=== PATIENT | female | born 1955 | race Caucasian/White ===

== ENCOUNTER 2020-03-24 06:54 | Outpatient (NON) | payer BC, SELFPAY ==
[2020-03-25 18:58] LABS: SARS-CoV-2 RNA PCR Negative
== END 2020-03-24 06:55 ==
PROVIDERS: PCP Internal Medicine; Visit Provider Internal Medicine
DX: R53.83 Other fatigue (principal); Z20.828 Contact with and (suspected) exposure to other viral communicable diseases
CPT/HCPCS: 87635; C9803; U0003

== ENCOUNTER 2020-11-17 15:36 | Emergency (ER) | payer BC, SELFPAY ==
--- NOTE | ~2020-11-17 | XR_ITS ---
EXAMINATION: XR chest 2V DATE: 11/17/2020 16:12 INDICATION: Productive cough and shortness of breath TECHNIQUE: PA and lateral views of the chest are obtained. COMPARISON: None available FINDINGS: There are minimal airspace opacities of the right middle lobe. There is a possible nodule o f the right lower lobe. There is no pleural effusion or pneumothorax. The cardiomediastinal silhouett e is normal. There is severe thoracic spondylosis. IMPRESSION: 1. Minimal airspace opacities of the right middle lobe, consistent with atelectasis versus pneumonia. Recommend followup radiographs in 10-14 days after appropriate therapy to evaluate for improvement/r esolution. 2. Possible right lower lobe nodule. Recommend attention on follow-up examination. Reviewed, dictated and finalized at location B. IMPRESSION: 1. Minimal airspace opacities of the right middle lobe, consistent with atelect asis versus pneumonia. Recommend followup radiographs in 10-14 days after appro priate therapy to evaluate for improvement/resolution. 2. Possible right lower lobe nodule. Recommend attention on follow-up examinati on.
[2020-11-17 15:50] VITALS: BP 141/102; PULSE 108; RESP 20; O2SAT 96
[2020-11-17 16:05] VITALS: BP 128/96
--- NOTE | 2020-11-17 16:38 | ED.URI ---
HPI - URI/Sore Throat General Chief Complaint: Upper Respiratory Infection Stated Complaint: sinus Time Seen by Provider: 11/17/20 15:59 Source: patient and RN notes reviewed Mode of arrival: ambulatory Limitations: no limitations History of Present Illness HPI Narrative: Patient presents today with a 1 week history of headache, intermittent diarrhea, fatigue, with a 2 to 3-day history of fever up to 99.3 with cough, congestion, rhinorrhea, feeling hot and cold. Patient has shortness of breath at baseline and states it is not worse than normal. She has been taking Mucinex, Excedrin, and Nasacort with relief. She has not been vaccinated against COVID-19. Smokes 2 packs/day. MD elicited complaint: cough and nasal congestion Related Data Allergies Allergy/AdvReac Type Severity Reaction Status Date / Time No Known Allergies Allergy Verified 11/17/20 16:04 Review of Systems Review of Systems: CONSTITUTIONAL: Denies body aches. + Fatigue, fever, chills, sweats EYES: Denies visual changes, redness, or discharge. ENT: Denies sore throat, or otalgia.+ Rhinorrhea, congestion CARDIOVASCULAR: Denies chest pain, palpitations, or edema. RESPIRATORY: Denies worsening shortness of breath.+ Cough GASTROINTESTINAL: Denies abdominal pain, nausea, vomiting. + Diarrhea GENITOURINARY: Denies dysuria or hematuria. SKIN: Denies rash, itching, or wounds. MUSCULOSKELETAL: Denies back pain, joint pain, or myalgia. NEUROLOGIC: Denies numbness, tingling, or weakness.+ Headache PSYCH: Denies depression or anxiety. PMFSH Surgical History Surgical History (Updated 11/17/20 @ 19:30 by Aixa Teresa, ANABEL, ) H/O thyroidectomy Social History Social History Gender identity (if verbalized by the patient): Female Comments At time of signature, I have reviewed and agree with nursing past medical, surgical, social and family history unless otherwise noted. Please see nursing chart for further information. There is no relevant family history pertinent to the presenting complaint Exam Narrative: GENERAL: Chronically ill-appearing, well-nourished, and in no acute distress. HEAD: Normocephalic, atraumatic. EYES: EOMI. No redness or drainage. Conjunctivae normal. ENT: Mucous membranes pink and moist. Nares congested. No rhinorrhea. TMs normal bilaterally. Throat normal. Uvula midline. NECK: Normal AROM. Supple. No lymphadenopathy. CHEST: No respiratory distress. Slightly diminished in the bilateral bases, otherwise clear HEART: Regular rate and rhythm. No murmur appreciated. Normal peripheral pulses. EXTREMITIES: Normal range of motion. No edema. SKIN: Warm, dry, no rash. Capillary refill normal. Normal skin turgor. NEURO: No focal deficits. Alert and oriented x3. Gait steady. PSYCH: Normal affect. No signs of depression or anxiety. Course Vital Signs Vital signs: Vital Signs Pulse Rate 108 H 11/17/20 15:50 Respiratory Rate 20 11/17/20 15:50 Blood Pressure 141/102 H 11/17/20 15:50 Pulse Oximetry 96 11/17/20 15:50 Pulse Rate 108 H 11/17/20 15:50 Respiratory Rate 20 11/17/20 15:50 Blood Pressure 128/96 H 11/17/20 16:05 Pulse Oximetry 96 11/17/20 15:50 Reviewed. Pt has been instructed to follow up with her PCP regarding her elevated blood pressure today. MDM - URI/Sore Throat Differential Diagnosis Differential diagnosis: Likely upper respiratory infection, sinusitis, viral infection, bronchitis and other (Pneumonia, COVID-19) Lab Data Attestation: I reviewed the patient's lab results. Labs: Lab Results 11/17/20 Range/Units 16:03 POC SARS CoV-2 Ag Negative (Negative) Critical Care Time Critical Care Time Critical Care Time: No Discharge Plan Discharge Clinical Impression: Pneumonia Qualifiers: Pneumonia type: due to unspecified organism Laterality: right Lung location: middle lobe of lung Qualified Code(s): J18.9 - Pneu
[2020-11-18 17:53] LABS: SARS-CoV-2 RNA PCR Negative
== END 2020-11-17 16:56 | disposition home or self-care (01) ==
PROVIDERS: Emergency Provider Nurse Practitioner; PCP Internal Medicine
DX: J18.1 Lobar pneumonia, unspecified organism (principal); Z20.822 Contact with and (suspected) exposure to COVID-19
CPT/HCPCS: 71046; 87426; 99213; C9803; G0463; U0003; U0005

== ENCOUNTER → 2021-08-21 11:29 | Outpatient (CLI) | payer BC, SELFPAY ==
--- NOTE | ~2021-08-21 | US_ITS ---
US abdomen complete EXAMINATION: US Abdomen Complete INDICATION: Upper abdominal pain PROCEDURE: Realtime High Resolution abdomen ultrasound. COMPARISON: No prior studies for comparison FINDINGS: Gallbladder is surgically absent. Common bile duct measures 8 mm. Liver echotexture within normal limits without focal mass. Pancreas within normal limits. Pancreati c tail is obscured by bowel gas. There are calcified granulomas of the spleen.. Renal echotexture is within normal limits bilaterally without hydronephrosis, contour deforming mass or renal stone. Right kidney measures 9.6 cm. Left kidney measures 9.5 cm. Visualized aspects of the aorta and IVC are within normal limits. Portal vein is patent. No sonograph ic Martinez's sign indicated by the technologist. IMPRESSION: 1: Status post cholecystectomy with expected prominence of the common bile duct. Reviewed, dictated and finalized at location A. IMPRESSION: 1: Status post cholecystectomy with expected prominence of the common bile duct .
== END ==
PROVIDERS: PCP Nurse Practitioner; Visit Provider Nurse Practitioner
DX: R10.10 Upper abdominal pain, unspecified (principal); Z90.49 Acquired absence of other specified parts of digestive tract
CPT/HCPCS: 76700

== ENCOUNTER → 2021-08-24 15:48 | Outpatient (CLI) | payer BC, SELFPAY ==
--- NOTE | ~2021-08-24 | CT_ITS ---
EXAMINATION: CT lung screening DATE: 08/24/2021 16:04 INDICATION: Personal history of tobacco dependence TECHNIQUE: Computed tomography (CT) of the chest was performed without intravenous contrast. The dose -length product was 199.90 mGy-cm. Automated exposure control and iterative reconstruction technique were employed. COMPARISON: None FINDINGS: Heart size normal. No significant pleural or pericardial effusion. There are calcified gran ulomas of the spleen. Status post cholecystectomy. Small hiatal hernia. No thoracic lymphadenopathy. There are a few scattered calcified granulomas of the lung parenchyma. There is emphysema. There is a 7 mm subsolid nodule in the left upper lobe, image 38 there are reticulonodular densities in the rig ht upper lobe peripherally, likely postinfectious/inflammatory residua. There are small pleural-based nodules measuring 2-3 mm in the upper lobes. No endobronchial lesions. No pneumothorax. No focal air space consolidation to suggest pneumonia. Moderate thoracic spondylosis.. IMPRESSION: 1. Lung-RADS category 3: Probably benign. Further evaluation is recommended with noncontrast low-dose chest CT in 6 months. Reviewed, dictated and finalized at location B. IMPRESSION: 1. Lung-RADS category 3: Probably benign. Further evaluation is recommended wit h noncontrast low-dose chest CT in 6 months.
== END ==
PROVIDERS: PCP Nurse Practitioner; Visit Provider Nurse Practitioner
DX: Z12.2 Encounter for screening for malignant neoplasm of respiratory organs (principal); Z87.891 Personal history of nicotine dependence; R91.8 Other nonspecific abnormal finding of lung field
CPT/HCPCS: 71271

== ENCOUNTER → 2021-10-20 07:47 | Outpatient (CLI) | payer BC, SELFPAY ==
--- NOTE | ~2021-10-20 | MM_ITS ---
EXAMINATION: MM screening dustin BI w angela HISTORY: Screening TECHNIQUE: Craniocaudal and mediolateral oblique 3-D tomosynthesis images were obtained and synthetic 2-D images were generated. CAD analysis was submitted and interpreted. COMPARISON: No prior mammogram is available for comparison at this institution. BREAST PARENCHYMAL COMPOSITION: There are scattered areas of fibroglandular density. FINDINGS: There is a focal asymmetry with clustered calcifications in the subareolar location of the left breast. There are no suspicious masses, calcifications or architectural distortion in the right breast to suggest malignancy. IMPRESSION: 1. Focal asymmetry in left breast calcifications in the subareolar location. 2. Additional mammographic views and possible breast ultrasound are recommended. BI-RADS Category 0: Incomplete: Needs additional imaging evaluation. Reviewed, dictated and finalized at location A. IMPRESSION: 1. Focal asymmetry in left breast calcifications in the subareolar location. 2. Additional mammographic views and possible breast ultrasound are recommended . BI-RADS Category 0: Incomplete: Needs additional imaging evaluation.
== END ==
PROVIDERS: PCP Nurse Practitioner; Visit Provider Nurse Practitioner
DX: Z12.31 Encounter for screening mammogram for malignant neoplasm of breast (principal); R92.8 Other abnormal and inconclusive findings on diagnostic imaging of breast
CPT/HCPCS: 77063; 77067

== ENCOUNTER 2021-11-19 07:44 | Outpatient (CLI) | payer BC, SELFPAY ==
--- NOTE | ~2021-11-19 | CT_ITS ---
EXAMINATION: CT abdomen pelvis w con DATE: 11/19/2021 08:29 INDICATION: Hemorrhage of the anus, rectum and vagina TECHNIQUE: Computed tomography (CT) of the abdomen and pelvis was performed with 100 cc Omnipaque 350 intravenous contrast. The dose-length product was 1276.21 mGy-cm. Automated exposure control and ite rative reconstruction technique were employed. COMPARISON: None. FINDINGS: Lung bases are unremarkable. Heart size normal. No significant pleural or pericardial effus ion. Status post cholecystectomy with expected prominence of the bile ducts. There are calcified granulomas of the spleen. Colonic diverticulosis without evidence for diverticuli tis. Mild atherosclerosis without aneurysm. Small hiatal hernia. No lymphadenopathy. The pancreas, adrenal glands and kidneys are unremarkable. Moderate lumbar spondylosis with grade 1 s pondylolisthesis at L4-5. IMPRESSION: 1. No acute abdominal abnormality. No findings to account for patient's symptoms. Reviewed, dictated and finalized at location B. IMPRESSION: 1. No acute abdominal abnormality. No findings to account for patient's symptom s.
[2021-11-19 08:17] LABS: Estimated Glomerular Filt Rate 50
== END 2021-11-19 07:45 | disposition home or self-care (01) ==
LOC: ANHIMG 07:46
PROVIDERS: PCP Nurse Practitioner; Visit Provider Nurse Practitioner
DX: K62.5 Hemorrhage of anus and rectum (principal); N93.9 Abnormal uterine and vaginal bleeding, unspecified; R10.9 Unspecified abdominal pain
CPT/HCPCS: 74177; Q9967

== ENCOUNTER 2022-03-19 11:58 | Outpatient (CLI) | payer BC, SELFPAY ==
--- NOTE | ~2022-03-19 | PE_ITS ---
EXAMINATION: PET skull to mid thigh DATE: 03/19/2022 14:02 INDICATION: Multiple nodules of lung TECHNIQUE: Blood glucose level was 108 mg/dL. 10.397 mCi of 18-fluorodeoxyglucose (18-FDG) was admini stered i.v. Low dose computed tomography (CT) images were acquired from the base of the brain to the proximal thighs for attenuation correction and anatomic localization. Positron emission tomography (P ET) images were acquired in the same distribution beginning 63 minutes after injection. Images includ ing fused PET/CT images were reconstructed in axial, coronal, and sagittal planes. Automated exposure control technique was employed. The dose-length product was 841.72mGy-cm. COMPARISON: CT dated 11/19/2021, 03/07/2022 and 08/24/2021 FINDINGS: Head/neck: There is symmetric increased activity in the oral cavity, palatine tonsils and ocular muscles without CT correlate, likely physiologic. No pathologically enlarged cervical lymphadenopathy or suspicious foci of increased FDG uptake in the visualized head or neck. Chest: The bilobed left upper lobe nodule which appears to have enlarged from 10 x 5 mm on 08/24/2021 to prisca uring 1.6 x 0.9 cm on 03/07/2022 demonstrates moderate increased FDG uptake with maximal SUV of 10.3. Small calcified nodule in the anterior segment of the right upper lobe without associated FDG uptake which along with a few calcified right hilar and mediastinal lymph nodes are likely related to old gr anulomatous disease. No other suspicious pulmonary nodules, pneumonia, pulmonary edema or pleural eff usion. Heart size is normal. No pericardial effusion. Thoracic aorta is normal in caliber. No patholo gically enlarged or FDG avid thoracic lymphadenopathy. Abdomen/pelvis/proximal thighs: Physiologic renal accumulation and excretion of FDG activity in the kidneys, bladder and along portio ns of ureters. Normal degree and heterogenous pattern of increased uptake throughout the liver withou t radiologic correlate or dominant FDG avid lesion. Cholecystectomy clips the gallbladder fossa. Naina ral small splenic calcific lesions consistent with old granulomatous disease. The pancreas and bilate ral adrenal glands are normal. Mild to moderate uptake scattered throughout the bowels without radiol ogic correlate, also likely physiologic. There are few scattered diverticula along the sigmoid colon without adjacent inflammatory change to suggest diverticulitis. Normal appendix. No other abnormal fo ci of increased FDG uptake or pathologically enlarged lymphadenopathy in the abdomen, pelvis or proxi mal thighs. Musculoskeletal: Severe thoracic and lumbar spondylosis. Mild increased uptake overlying the left greater trochanter w ithout radiologic correlate consistent with trochanteric bursitis. No suspicious lytic, blastic or FD G avid bone lesions. IMPRESSION: 1. Moderate increased FDG uptake associated with enlarging left upper lobe nodule which is concerning for primary bronchogenic carcinoma. Consider percutaneous CT-guided biopsy. Reviewed, dictated and finalized at location A. ICAL PROJECT MANAGER IMPRESSION: 1. Moderate increased FDG uptake associated with enlarging left upper lobe nodu le which is concerning for primary bronchogenic carcinoma. Consider maddieou s CT-guided biopsy.
[2022-03-19 12:31] LABS: Glucose Point of Care 108 mg/dl (65-105)
== END 2022-03-19 11:59 | disposition home or self-care (01) ==
PROVIDERS: PCP Nurse Practitioner; Visit Provider Nurse Practitioner
DX: R91.8 Other nonspecific abnormal finding of lung field (principal)
CPT/HCPCS: 78815; A9552

== ENCOUNTER 2022-04-09 07:54 | Outpatient (CLI) | payer BC, SELFPAY ==
--- NOTE | 2022-03-26 15:51 | PC.NURSE ---
Pre Radiology instructions Report to the outpatient [facility] on date _04/09/22 @ 0900____ Procedure Time: _1100___ YOU MAY BE MONITORED AT HOSPITAL FOR UP TO 4 HOURS AFTER YOUR PROCEDURE. A visitors will be allowed to accompany the patient into the hospital. ?The visitor will be instructed to remain with patient at all times or leave the building due to restrictions.? We will allow the visitor to come back to the postoperative area when patient is ready.? NO children visitors allowed at this time. You and your visitor will be asked to self-screen and do not enter if you have any COVID symptoms. A mask is REQUIRED within the hospital. Patients are to have no food or drink 6 hours prior to procedure time (0500 AM) Driving will be restricted after the procedure, you must have a person to drive you home. Labs will be drawn in preop area and once reviewed, you will be taken to radiology area for procedure. When the procedure is completed, you will be taken to outpatient where you will be monitored for several hours. You may have one visitor in this area. Other than holding anti-coagulants, patient may take other medication(s) as scheduled. Prior to your appointment date patients are instructed to hold anti-coagulants after discussing with ordering provider to stop. If unable to discontinue anti-coagulants please notify radiologist. ? No aspirin or warfarin (Coumadin) for 7 days prior to the procedure. ? No clopidogrel (Plavix), ticagrelor (Brilinta), prasugrel (Effient) or dabigatran (Pradaxa) for 5 days prior to the procedure. ? No rivaroxaban (Xarelto), apixaban (Eliquis), dipyridamole (Aggrenox or Persantine) or cilostazol (Pletal) for 2 days prior to the procedure. Medications to discontinue per physician: __ EXCEDRIN Date to take last dose: ___04/01/22 Please leave all valuables, including medications, at home the day of procedure. The hospital will not accept responsibility for valuables. Wear comfortable, loose fitting clothing.? Follow any additional instructions given to you from ordering provider. Telephone instructions given to ____PT and asked if any additional questions and then verbalized understanding. Patient advised to call scheduling provider office or registration scheduling [phone] if any additional questions.
[2022-03-26 16:01] VITALS: BMI 41.7
[2022-04-09] VITALS (10 sets, daily range): BP systolic 120–164; BP diastolic 73–109; PULSE 66–97; RESP 18–24; TEMP 36.6; O2SAT 93–100
--- NOTE | ~2022-04-09 | XR_ITS ---
EXAMINATION: XR chest 1V DATE: 04/09/2022 11:57 INDICATION: Left lung nodule status post percutaneous biopsy. TECHNIQUE: A single frontal view of the chest was obtained. COMPARISON: Chest 2 views 11/17/2020 FINDINGS: There is mild elevation of left hemidiaphragm. No pneumonia, pleural effusion, or pneumotho rax. The heart size is normal. IMPRESSION: 1. No acute cardiopulmonary disease. Reviewed, dictated and finalized at location A. NT TECHNICAL PROFESSIONAL
--- NOTE | ~2022-04-09 | CT_ITS ---
EXAMINATION: CT biopsy lung w/imaging DATE: 04/09/2022 11:55 INDICATION: Left lung nodule. TECHNIQUE: The procedure including the risks, benefits, and alternatives and possibility of chest tub e placement were discussed with the patient. Risks discussed included infection, hemorrhage, approxim ately 1/3 risk of pneumothorax, approximately 1/10 risk of pneumothorax severe enough to warrant ches t tube placement, and rarely . The patient understood the risks and agreed to proceed. The patie nt was placed supine. The skin overlying the left chest was prepped and draped in sterile fashion. Anesthetic was administered with 1% lidocaine subcutaneously. A 19 gauge outer needle was advanced u nder CT guidance to the lesion of interest. A 20 gauge core biopsy needle was then used to obtain 2 c ore biopsy specimens. The needle was removed and the entry site was cleaned and dressed. The mA was a djusted according to patient size. Iterative reconstruction technique was employed. The dose-length p roduct was 200.00 mGy-cm. There were no immediate complications. FINDINGS: CT images demonstrate the outer needle tip adjacent to a 12 mm nodule in left lung upper lo be. IMPRESSION: 1. CT-guided core needle biopsy of a 12 mm nodule in left lung upper lobe. Reviewed, dictated and finalized at location A. E MIDWIFE/CLINICAL INSTRUCTOR
--- NOTE | ~2022-04-09 | XR_ITS ---
EXAMINATION: XR chest 1V portable DATE: 04/09/2022 12:18 INDICATION: Chest pain after left lung biopsy. TECHNIQUE: A single frontal view of the chest was obtained. COMPARISON: Chest single view at 11:54 AM FINDINGS: There is mild elevation of left hemidiaphragm. No pneumonia, pleural effusion, or pneumotho rax. The heart size is normal. IMPRESSION: 1. No acute cardiopulmonary disease. Reviewed, dictated and finalized at location A. RVATIONS SALES SUPERVISOR
--- NOTE | ~2022-04-09 | XR_ITS ---
EXAMINATION: XR chest 1V portable DATE: 04/09/2022 15:11 INDICATION: Left lung nodule status post percutaneous biopsy. TECHNIQUE: A single frontal view of the chest was obtained. COMPARISON: Chest single view at 1:10 PM FINDINGS: There is mild elevation of left hemidiaphragm. There is mild atelectasis in the lower lung zones. There is a tiny left pneumothorax. The heart size is normal. IMPRESSION: 1. Multiple tiny left pneumothorax. Reviewed, dictated and finalized at location A. BILITATION CENTER MANAGER
--- NOTE | ~2022-04-09 | XR_ITS ---
EXAMINATION: XR chest 1V portable DATE: 04/09/2022 13:16 INDICATION: Left lung nodule status post percutaneous biopsy. TECHNIQUE: A single frontal view of the chest was obtained. COMPARISON: Chest single view at 12:16 PM FINDINGS: There is mild elevation of left hemidiaphragm. No pneumonia or pleural effusion. There is a small left pneumothorax. The heart size is normal. IMPRESSION: 1. Small left pneumothorax. Reviewed, dictated and finalized at location A. WAY MAINTENANCE SUPERVISOR IMPRESSION: 1. Small left pneumothorax.
[2022-04-09] MEDS: SODIUM CHLORIDE 0.9% IV 1,000 ML 30 ML IV CONT (09:45)
[2022-04-09 10:05] LABS: Mean Platelet Volume 10.9 fl (7.4-10.4); Platelet Count Result 223 k/mm3 (150-375)
[2022-04-09 10:09] LABS: Prothrombin Time 12.7 Seconds (11.1-14.7)
--- NOTE | 2022-04-09 15:42 | SUR.PHASEII ---
PER DR PARIS PATIENT IS OKAY TO DISCHARGE AND MONITOR FOR SHORTNESS OF BREATH
== END 2022-04-09 15:50 | disposition home or self-care (01) ==
PROVIDERS: PCP Nurse Practitioner; Referring Provider Nurse Practitioner; Visit Provider Radiology Diagnostic Radiology
PROC: BB24ZZZ Computerized Tomography (CT Scan) of Bilateral Lungs (ICD-10-PCS; CPT 32408; principal; 2022-04-09 11:00)
DX: R91.8 Other nonspecific abnormal finding of lung field (principal); C34.92 Malignant neoplasm of unspecified part of left bronchus or lung
CPT/HCPCS: 32408; 36415; 71045; 85049; 85610; 88305; 88342; J7030

== ENCOUNTER 2022-04-23 08:00 | Outpatient (CLI) | payer BC, SELFPAY ==
--- NOTE | 2022-04-24 15:18 | WPDPFTINT ---
PFT Procedure Performed PFT Procedure Performed Spirometry with Pre/Post Bronchodilator Plethysmography (Lung Vol) Diffusing Cap (DLCO) Flow Vol Loop PFT Interpretation This is a pulmonary function test with pre and post-bronchodilator spirometry, plethysmography and diffusing capacity. The test was performed and results interpreted in accordance with the 2019 and 2005 ATS/ERS Task Force guidelines respectively using the Global Lung Function Initiative-2012 reference equations. Patient demonstrated good effort and cooperation. Reproducibility criteria were met. The quality of the pre bronchodilator spirometry maneuver was Grade A and post bronchodilator spirometry maneuver was Grade A. Findings: Spirometry: The contour the inspiratory and expiratory flow tracing are normal. The pre bronchodilator FVC is 2.90 L, 100% predicted. The pre bronchodilator FEV1 is 2.18 L, 96% predicted. The pre bronchodilator FEV1: FVC ratio was 75%. The post bronchodilator FVC is 2.92 L, representing 1% increase. The post bronchodilator FEV1 is 2.24 L, representing a 3% increase. The post bronchodilator FEV1: FVC ratio 77%. Plethysmography: The total lung capacity is 4.63 L, 94% predicted. The functional residual capacity is 2.50 L, 90% predicted. The residual volume is 1.73 L, 85% predicted. Diffusing capacity: The diffusing capacity unadjusted for hemoglobin and carboxyhemoglobin is 18.3, 89% predicted. The diffusing capacity adjusted for alveolar volume is 4.48, 102% predicted. Impression: The spirometry is normal without evidence of an obstructive abnormality. There is no significant improvement after inhaling a single dose of albuterol. The lung volumes are normal. The diffusing capacity is normal. There are no prior studies for comparison
== END 2022-04-23 08:01 | disposition home or self-care (01) ==
PROVIDERS: PCP Nurse Practitioner; Visit Provider Nurse Practitioner
DX: C34.90 Malignant neoplasm of unspecified part of unspecified bronchus or lung (principal)
CPT/HCPCS: 94060; 94726; 94729

== ENCOUNTER → 2022-06-10 11:17 | Outpatient (CLI) | payer BC, SELFPAY ==
--- NOTE | ~2022-06-10 | CT_ITS ---
EXAMINATION:CT diagnostic chest w con DATE: 06/10/2022 11:42 INDICATION: Malignant neoplasm of upper lobe, left bronchus or lung. TECHNIQUE: Computed tomography (CT) of the chest was performed without intravenous contrast. Automate d exposure control and iterative reconstruction technique were employed. The dose-length product (DLP ) was 486.33 mGy-cm. COMPARISON: Chest CT 03/07/2022, 08/24/21 FINDINGS: There is a 16 mm nodule in left lung upper lobe. Again seen is a 4 mm nodule at right lung apex, stable from 08/24/21. Again seen is a 4 mm nodule at left lung apex, stable from 08/24/21. A calc ified right lung nodule and calcified right hilar and mediastinal lymph nodes are consistent with old granulomatous disease. No pleural effusion. There is chronic elevation of left hemidiaphragm. The he art size is normal. There are coronary artery calcifications. No pericardial effusion. Right thyroid lobe is absent. There are nodules in the thyroid measuring up to 5 mm, likely not clinically signific ant. There is a small sliding hiatal hernia. Calcifications in the spleen are consistent with old gra nulomatous disease. There are changes of cholecystectomy. There is severe thoracic spondylosis. There is mild chronic anterior wedging of multiple vertebral bodies. IMPRESSION: 1. 16 mm nodule in left lung upper lobe, increased from 12 mm on 03/07/2022, consistent with squamous cell carcinoma. Reviewed, dictated and finalized at location A. R SCHOOL PROGRAM DIRECTOR IMPRESSION: 1. 16 mm nodule in left lung upper lobe, increased from 12 mm on 03/07/2022, con sistent with squamous cell carcinoma.
[2022-06-10 11:35] LABS: Estimated Glomerular Filt Rate 50
== END ==
PROVIDERS: PCP Nurse Practitioner
DX: C34.12 Malignant neoplasm of upper lobe, left bronchus or lung (principal)
CPT/HCPCS: 71260; Q9967

== ENCOUNTER → 2022-12-17 12:26 | Outpatient (CLI) | payer BC, SELFPAY ==
--- NOTE | ~2022-12-17 | US_ITS ---
EXAMINATION: US thyroid DATE: 12/17/2022 12:45 INDICATION: Nontoxic single thyroid nodule. TECHNIQUE: Multiple ultrasound images of the thyroid were obtained. COMPARISON: None. FINDINGS: The right thyroid lobe is absent. The left thyroid lobe measures 4.0 x 1.8 x 2.1 cm. In the left thy roid lobe, there is a 12 mm mixed cystic and solid, isoechoic, wider than tall nodule with smooth mar gin without echogenic foci (TI-RADS TR2). In the left thyroid lobe, there is a 7 mm solid, hypoechoic , wider than tall nodule with smooth margin without echogenic foci (TR4). IMPRESSION: 1. Small thyroid nodules, likely not clinically significant. No follow-up is needed. Reviewed, dictated and finalized at location A. IMPRESSION: 1. Small thyroid nodules, likely not clinically significant. No follow-up is ne eded.
== END ==
PROVIDERS: PCP Internal Medicine; Visit Provider Internal Medicine
DX: E04.2 Nontoxic multinodular goiter (principal)
CPT/HCPCS: 76536

== ENCOUNTER 2023-08-15 08:34 | Outpatient (CLI) | payer BC, SELFPAY ==
--- NOTE | ~2023-08-15 | CT_ITS ---
CT of the Abdomen and Pelvis: Indication: Abdominal pain Technique: 2.5 mm axial scans were obtained through the abdomen and pelvis following intravenous adm inistration of 100 cc of Omnipaque 350. Dose reduction technique was used on this scan by utilizing a utomated exposure control and iterative reconstruction technique. The dose-length product (DLP) was 1 063.70 mGy-cm. COMPARISON: 11/19/2021 Findings: Scans through the lung bases are unremarkable. Mild intrahepatic and extra hepatic biliary dilatation is stable from prior exam, presumably related to prior cholecystectomy. Calcified splenic granulomas are noted. The pancreas, adrenals and kidneys are within normal limits. There are atherosclerotic calcifications of the aorta. No lymphadenopathy. No bowel obstruction or bowel wall thickening. There is sigmoid diverticulosis. Images through the pelvis were performed. Urinary bladder unremarkable. No pelvic mass seen. No ascit es. Impression: No acute abnormalities seen. Stable intrahepatic and extrahepatic biliary dilatation, presumably related to prior cholecystectomy. Reviewed, dictated and finalized at location . Impression: No acute abnormalities seen. Stable intrahepatic and extrahepatic biliary dilatation, presumably related to prior cholecystectomy.
[2023-08-15 08:57] LABS: Estimated Glomerular Filt Rate 45
== END 2023-08-15 08:35 ==
PROVIDERS: PCP Nurse Practitioner; Visit Provider Nurse Practitioner
DX: R10.9 Unspecified abdominal pain (principal)
CPT/HCPCS: 74177; Q9967

== ENCOUNTER 2023-08-19 14:17 | Outpatient (CLI) | payer BC, SELFPAY ==
--- NOTE | ~2023-08-19 | US_ITS ---
Thyroid ultrasound. Clinical History: Thyroid nodule COMPARISON: 12/17/2022 Findings: Real-time sonography of the thyroid gland was performed. The right lobe is surgically abse nt. The left lobe measures 3.8 x 1.7 x 2.1 cm. The isthmus is 3 mm in AP diameter. There is a 1.5 cm spongiform nodule at the left lower pole. There is an additional 0.7 cm spongiform nodule at the posterior mid to lower pole. There is a 0.7 cm cystic nodule at the left midpole. Impression: Benign-appearing thyroid nodules, as detailed above.. Reviewed, dictated and finalized at location M. Impression: Benign-appearing thyroid nodules, as detailed above..
== END 2023-08-19 14:18 ==
PROVIDERS: PCP Nurse Practitioner; Visit Provider Nurse Practitioner
DX: E04.2 Nontoxic multinodular goiter (principal)
CPT/HCPCS: 76536

== ENCOUNTER 2023-12-23 11:52 | Outpatient (CLI) | payer BC, SELFPAY ==
--- NOTE | ~2023-12-23 | US_ITS ---
EXAMINATION: US soft tissue UE LT DATE: 12/23/2023 12:12 INDICATION: Lump at the left arm TECHNIQUE: Multiple grayscale and Doppler ultrasound images of the region of concern at the anterolat eral left upper arm were obtained. COMPARISON: None FINDINGS: There is a 5.4 x 5.2 x 2.7 cm mass in the subcutaneous tissues at the region of concern which is isoe choic and with similar echogenicity and echotexture as the surrounding subcutaneous fat most consiste nt with a lipoma. IMPRESSION: 1. Nonspecific 5.4 x 5.2 x 2.7 cm subcutaneous mass at the region of concern with appearance most con sistent with and statistically most likely to represent a lipoma. Reviewed, dictated and finalized at location B. IMPRESSION: 1. Nonspecific 5.4 x 5.2 x 2.7 cm subcutaneous mass at the region of concern wi th appearance most consistent with and statistically most likely to represent a lipoma.
== END 2023-12-23 11:53 | disposition home or self-care (01) ==
LOC: MICIMG 11:53
PROVIDERS: PCP Nurse Practitioner; Visit Provider Nurse Practitioner
DX: R22.32 Localized swelling, mass and lump, left upper limb (principal)
CPT/HCPCS: 76882

== ENCOUNTER 2023-12-30 13:39 | Outpatient (CLI) | payer BC, SELFPAY ==
--- NOTE | ~2023-12-30 | MM_ITS ---
EXAMINATION: MM screening dustin BI w angela HISTORY: Screening TECHNIQUE: Craniocaudal and mediolateral oblique 3-D tomosynthesis images were obtained and synthetic 2-D images were generated. CAD analysis was submitted and interpreted. COMPARISON: 10/20/2021 BREAST PARENCHYMAL COMPOSITION: Not Dense: The breasts are almost entirely fatty. FINDINGS: There is no evidence of suspicious mass, calcification, or architectural distortion to sugg est malignancy in either breast. There has been no suspicious interval change. IMPRESSION: 1. No mammographic evidence of malignancy. 2. Recommend routine screening mammography in one year. BI-RADS Category 1: Negative Reviewed, dictated and finalized at location B.
== END 2023-12-30 13:40 | disposition home or self-care (01) ==
PROVIDERS: PCP Nurse Practitioner; Visit Provider Nurse Practitioner
DX: Z12.31 Encounter for screening mammogram for malignant neoplasm of breast (principal)
CPT/HCPCS: 77063; 77067

== ENCOUNTER 2024-02-16 14:30 | Outpatient (CLI) | payer BC, SELFPAY ==
--- NOTE | ~2024-02-16 | MR_ITS ---
EXAMINATION: MR lumbar spine wo con DATE: 02/16/2024 15:05 INDICATION: Low back pain. Other intervertebral disc degeneration, lumbar. TECHNIQUE: Magnetic resonance imaging (MRI) of the lumbar spine was performed without intravenous con trast. Sequences included sagittal T2-weighted FSE, sagittal T2-weighted FS FSE, sagittal T1-weighted FSE, and axial T2-weighted FSE. COMPARISON: None FINDINGS: There is 4 mm anterolisthesis of L4 on L5. There is mild chronic anterior wedging of T11 an d T12 vertebral bodies. There is severely decreased disc height at T10-T11 and T11-T12 and mildly dec reased disc height at L4-L5. The distal spinal cord signal intensity is normal. The conus medullaris is at L1. The following disc levels are specifically discussed: L1-L2: The disc is bulging. There is mild bilateral facet joint osteoarthritis. There is mild left ne ural foraminal stenosis. There is mild central canal stenosis. L2-L3: There is a left foraminal protrusion. There is severe right and moderate left facet joint oste oarthritis. There is mild left neural foraminal stenosis. There is no central canal stenosis. L3-L4: The disc does not extend beyond the endplate margin. There is severe bilateral facet joint ost eoarthritis. There is no neural foraminal stenosis. There is no central canal stenosis. L4-L5: The disc is bulging and has an annular fissure. There is severe bilateral facet joint osteoart hritis. There is mild bilateral neural foraminal stenosis. There is mild central canal stenosis. L5-S1: The disc is bulging with superimposed right subarticular zone protrusion with mass effect on t he right S1 nerve root in right lateral recess. There is severe bilateral facet joint osteoarthritis. There is mild bilateral neural foraminal stenosis. There is mild central canal stenosis. There is mo derate stenosis of right lateral recess. IMPRESSION: 1. Protrusion at L5-S1 with mass effect on the right S1 nerve root. Otherwise mild lumbar spondylosis . Reviewed, dictated and finalized at location A. [employer] IMPRESSION: 1. Protrusion at L5-S1 with mass effect on the right S1 nerve root. Otherwise m ild lumbar spondylosis.
== END 2024-02-16 14:31 | disposition home or self-care (01) ==
LOC: MICIMG 14:32
PROVIDERS: PCP Nurse Practitioner; Visit Provider Nurse Practitioner
DX: M51.362 Other intervertebral disc degeneration, lumbar region with discogenic back pain and lower extremity pain (principal); M54.16 Radiculopathy, lumbar region; M51.26 Other intervertebral disc displacement, lumbar region
CPT/HCPCS: 72148

== ENCOUNTER 2024-08-10 11:25 | Outpatient (CLI) | payer MEDICARE, OTHER, SELFPAY ==
--- NOTE | ~2024-08-10 | XR_ITS ---
XR sacroiliac joints min 3V Ordering provider: Tamar Merrill, History: . Pain in unspecified joint . Comparison: None. FINDINGS: BONES: No acute fracture or dislocation. JOINTS: The bilateral sacroiliac joint spaces appear narrowed with sacroiliitis. No bony fusion of th e sacroiliac joints or bony erosions. osteoarthritic changes of the hips. SOFT TISSUES: Unremarkable. IMPRESSION: NO ACUTE OSSEOUS ABNORMALITY. BILATERAL SACROILIITIS.. Reviewed, dictated and finalized at location A.
--- NOTE | ~2024-08-10 | XR_ITS ---
Right Shoulder Technique: AP and axillary views were obtained. Clinical History: Pain Findings: No fracture or dislocation is seen. Osseous alignment is anatomic. The glenohumeral and acr omioclavicular joint spaces are preserved. Soft tissues are unremarkable. Impression: Unremarkable right shoulder radiographs. Reviewed, dictated and finalized at [facility]. Impression: Unremarkable right shoulder radiographs.
--- NOTE | ~2024-08-10 | XR_ITS ---
Right Hand Technique: PA and lateral views were obtained. Clinical History: Pain Findings: No acute fracture or dislocation is seen. Osseous alignment is anatomic. There is minimal d egenerative change of the DIP joints. There is mild degenerative change of the first CMC joint. Soft tissues are unremarkable. Impression: Mild degenerative changes, as above. Reviewed, dictated and finalized at location . Impression: Mild degenerative changes, as above.
--- NOTE | ~2024-08-10 | XR_ITS ---
Left Shoulder Technique: AP and axillary views were obtained. Clinical History: Pain Findings: No fracture or dislocation is seen. Osseous alignment is anatomic. The glenohumeral and acr omioclavicular joint spaces are preserved. Soft tissues are unremarkable. Impression: Unremarkable left shoulder radiographs. Reviewed, dictated and finalized at [facility]. Impression: Unremarkable left shoulder radiographs.
--- NOTE | ~2024-08-10 | XR_ITS ---
Right foot Technique: AP and lateral views were obtained. Clinical History: Pain Findings: No acute fracture or dislocation is seen. Osseous alignment is anatomic. There is moderate degenerative change of the first MTP joint.. Soft tissues are unremarkable. Impression: Moderate degenerative change of the first MTP joint. Reviewed, dictated and finalized at [facility]. Impression: Moderate degenerative change of the first MTP joint.
--- NOTE | ~2024-08-10 | XR_ITS ---
Left Hand Technique: PA and lateral views were obtained. Clinical History: Pain Findings: No acute fracture or dislocation is seen. Osseous alignment is anatomic. Joint spaces are p reserved. Soft tissues are unremarkable. Impression: Unremarkable left hand. Reviewed, dictated and finalized at location M. Impression: Unremarkable left hand.
--- NOTE | ~2024-08-10 | XR_ITS ---
Left foot Technique: AP and lateral views were obtained. Clinical History: Pain Findings: No acute fracture or dislocation is seen. Osseous alignment is anatomic. Joint spaces are p reserved without erosive or degenerative change. Soft tissues are unremarkable. Impression: Unremarkable left foot radiographs. Reviewed, dictated and finalized at location . Impression: Unremarkable left foot radiographs.
== END 2024-08-10 11:26 | disposition home or self-care (01) ==
LOC: MICIMG 11:32
PROVIDERS: PCP Nurse Practitioner; Visit Provider Internal Medicine Rheumatology
DX: M25.50 Pain in unspecified joint (principal); R53.83 Other fatigue; M79.10 Myalgia, unspecified site; R76.8 Other specified abnormal immunological findings in serum; Z11.59 Encounter for screening for other viral diseases; M19.041 Primary osteoarthritis, right hand; M19.071 Primary osteoarthritis, right ankle and foot
CPT/HCPCS: 72202; 73030; 73120; 73620